=== PATIENT | female | born 1935 | race Caucasian/White ===

== ENCOUNTER 2016-10-17 06:40 | Day surgery (SDC) | payer MEDICARE, BC ==
[~2016-10-17 06:40] MED LIST: RINGER'S SOLUTION,LACTATED 1,000 ML IV PRN
[2016-10-17] MEDS ORDERED: RINGER'S SOLUTION,LACTATED 1,000 ML IV ONE (07:20)
[2016-10-17] MEDS ORDERED: RINGER'S SOLUTION,LACTATED 1,000 ML IV PRN (08:24)
[2016-10-17 09:22] VITALS: BP 108/54
--- NOTE | 2016-10-17 18:28 | OR ---
Operative Report - Dictated Report Narrative: OPERATIVE REPORT DATE OF OPERATION: 10/17/2016 PREOPERATIVE DIAGNOSIS: Personal history of colon cancer. Personal history of colon polyps. Family history of colon cancer POSTOPERATIVE DIAGNOSIS: 4 mm polyp in the ascending colon (pathology pending) , 3 mm polyp in the transverse colon (pathology pending), 3 mm polyp at 30 cm ( destroyed in place) OPERATION: Colonoscopy with hot biopsy forceps polypectomy 3 SURGEON: Natan Galarza MD ANESTHESIA: MICHELINE Doe CRNA INDICATIONS FOR PROCEDURE: The patient is an 80-year-old female referred by Dr. Blanton. The patient's mother at age 88 from colon cancer and her sister of colon cancer in her 70s. The patient herself had a sigmoid colon resection for adenocarcinoma in 1975. She underwent colonoscopy for sigmoid colon thickening seen on CT scan in 10/2000 --- she was found to have 3 adenomatous polyps, and because of compromised exam she underwent surveillance one month later with 4 additional adenomatous polyps removed. A surveillance exam in 01/2001 was negative. She had melanosis coli on exam in 2003. On exam in 2009 she had a 7 mm adenomatous polyp. She is brought for surveillance FINDINGS: 4 mm polyp in the ascending colon, 3 mm polyp in the proximal transverse colon, and 3 mm polyp at 30 cm. NARRATIVE OF PROCEDURE: The patient was identified in the holding area, and prior to the administration of anesthetic, a multidisciplinary timeout was observed. With the patient in the left lateral position and after the administration of intravenous sedation, the perineum was inspected. There was no evidence of pilonidal disease or skin breakdown. The external appearance of the anus was normal. Sphincter tone was good. The flexible fiberoptic colonoscope was inserted into the rectum which was insufflated with air. The rectal mucosa and submucosal vascular pattern appeared normal, the prep was seen to be complete. The scope was advanced through the sigmoid colon, up the descending colon, and around the splenic flexure where the triangular haustral architecture of the transverse colon was seen. The scope was advanced across the transverse colon, around the hepatic flexure to the cecum, where the confluence of tenia and the ileocecal valve were identified. The mucosa at this level appeared normal. The scope was then slowly withdrawn in a circular fashion so that all aspects of colonic mucosa were inspected. The colon was very redundant in course. The haustral architecture appeared well preserved throughout with no evidence of external compression. The mucosa and submucosal vascular pattern appeared normal, specifically there was no gross evidence to suggest colitis or inflammatory bowel disease and no AV malformations were seen. The patient's previously seen melanosis coli has largely resolved. No tenea diverticulosis was demonstrated. A 4 mm polyp was encountered in the ascending colon just proximal to the hepatic flexure. It was biopsied and then thoroughly destroyed with electrocautery. The site was seen to be complete and hemostatic. A 3 mm polyp was encountered in the proximal transverse colon. It was biopsied and then thoroughly destroyed with electrocautery. The site was seen to be complete and hemostatic. An additional 3 mm area of polypoid change was seen at 30 cm. This was simply destroyed in place with electrocautery. The site was seen to be complete and hemostatic. The scope was gradually withdrawn to the level of the rectum. As much insufflated air as possible was removed. The scope was withdrawn from the patient and the procedure terminated. The patient tolerated the anesthetic and procedure well without complication and was transferred back to the ambulatory surgery area awake and in stable condition. The patient remained stable throughout a period of postoperative observation. She denied abdominal discomfort, was able to tolerate by mouth intake, and was up without assistance. I shared the operative findings with the patient and she was given copies of the photographs which appear in the medical record. She was discharged home with instructions not to engage in hazardous activity today , but may resume normal activity tomorrow, and advance diet as tolerated. She is to continue those medications as listed in the history and physical exam. I made arrangements to contact her with the biopsy reports and will make additional recommendations for treatment and follow-up based upon those results. Reviewed and electronically signed
== END 2016-10-17 06:41 | disposition home or self-care (01) ==
LOC: AMB 06:40
PROVIDERS: ATTEND Surgery
PROC: 0DBE8ZX Excision of Large Intestine, Via Natural or Artificial Opening Endoscopic, Diagnostic (ICD-10-PCS; 2016-10-17)
PROC: 0DBL8ZX Excision of Transverse Colon, Via Natural or Artificial Opening Endoscopic, Diagnostic (ICD-10-PCS; 2016-10-17)
PROC: 0DBK8ZX Excision of Ascending Colon, Via Natural or Artificial Opening Endoscopic, Diagnostic (ICD-10-PCS; principal; 2016-10-17 08:00)
DX: Z12.11 Encounter for screening for malignant neoplasm of colon (principal); D12.2 Benign neoplasm of ascending colon; D12.3 Benign neoplasm of transverse colon; K63.5 Polyp of colon; I10 Essential (primary) hypertension; E78.5 Hyperlipidemia, unspecified; Z85.038 Personal history of other malignant neoplasm of large intestine; Z87.891 Personal history of nicotine dependence; Z68.24 Body mass index [BMI] 24.0-24.9, adult